=== PATIENT | male | born 1970 | race Caucasian/White ===

== ENCOUNTER 2024-11-25 08:15 | Day surgery (SDC) | payer OTHER ==
[2024-11-23 11:58] VITALS: BMI 32.1
[2024-11-25] MEDS ORDERED: GLYCOPYRROLATE 0.2 MG/1 ML VIAL ONE (09:08)
[2024-11-25] MEDS ORDERED: ONDANSETRON 4 MG/2 ML VIAL ONE (09:08)
[2024-11-25 11:14] VITALS: BP 126/79; PULSE 91; RESP 18; TEMP 98
== END 2024-11-25 10:32 | disposition home or self-care (01) ==
LOC: FASU-ENDO 08:15
PROVIDERS: ATTEND Internal Medicine Gastroenterology
PROC: 0DB98ZX Excision of Duodenum, Via Natural or Artificial Opening Endoscopic, Diagnostic (ICD-10-PCS; 2024-11-25)
PROC: 0DB68ZX Excision of Stomach, Via Natural or Artificial Opening Endoscopic, Diagnostic (ICD-10-PCS; 2024-11-25)
PROC: 0DJD8ZZ Inspection of Lower Intestinal Tract, Via Natural or Artificial Opening Endoscopic (ICD-10-PCS; principal; 2024-11-25 09:18)
DX: Z12.11 Encounter for screening for malignant neoplasm of colon (principal); K57.30 Diverticulosis of large intestine without perforation or abscess without bleeding; K29.50 Unspecified chronic gastritis without bleeding; R10.13 Epigastric pain
CPT/HCPCS: 82962; 88305-TC; 88342-TC